=== PATIENT | female | born 1940 | race Caucasian/White ===

== ENCOUNTER 2022-06-07 13:30 | Emergency (ER) | payer MEDICARE, SELFPAY ==
[2022-06-07 13:45] VITALS: PULSE 88; RESP 22; TEMP 37.1; O2SAT 64
[2022-06-07 13:56] VITALS: BP 98/50; PULSE 88; RESP 40; O2SAT 100
[2022-06-07 14:29] VITALS: PULSE 88; RESP 22; TEMP 37.1; O2SAT 64
--- NOTE | 2022-06-07 14:51 | ED.SOB ---
HPI - SOB/Dyspnea General Chief Complaint: Shortness of Breath/Dyspnea Stated Complaint: Poss RSV Time Seen by Provider: 06/07/22 13:40 Source: patient, family, RN notes reviewed and old records reviewed Mode of arrival: ambulatory Limitations: no limitations History of Present Illness HPI Narrative: 82-year-old female accompanied by daughter and other family members presents to express care to be seen today. Daughter reports that she was diagnosed with RSV on the 3rd of the month and her mother has been increasingly more short of breath so she brought her in for evaluation. Patient seen in room 1 with oxygen at 4l per nasal cannula with SAO2 noted to be 64--68% with circumoral pallor, lethargic AND NOT ANSWERING QUESTIONS OR RESPONDING TO STAFF. Patient placed on 100% non rebreather with oxygen saturation improving slowly with patient becoming more alert and responsive.lungs auscultated with crackles noted over 1/2 height of lungs field and peripheral edema noted. Daughter states that patient has been home from the hospital for about 2 weeks after 15 day at [facility]. 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 MD elicited complaint: shortness of breath and cough Pertinent past history: COPD and pneumonia Treatment prior to arrival: oxygen and bronchodilator Related Data Home oxygen amount: 4 liters Home Medications Medication Instructions Recorded Confirmed albuterol sulfate 90 mcg/actuation 1 puff inhalation Q4H PRN 07/23/20 09/11/20 aerosol inhaler alprazolam 1 mg tablet 1 mg PO BID 07/23/20 09/11/20 amlodipine 2.5 mg tablet (Norvasc) 2.5 mg PO DAILY 07/23/20 09/11/20 aspirin 81 mg tablet,delayed 81 mg PO DAILY 07/23/20 09/11/20 release (Adult Low Dose Aspirin) azelastine 137 mcg (0.1 %) nasal 1 spray intranasal Q12H 07/23/20 09/11/20 spray aerosol calcitonin (salmon) 200 1 spray intranasal (ALT) DAILY 07/23/20 09/11/20 unit/actuation nasal spray ezetimibe 10 mg tablet (Zetia) 10 mg PO DAILY 07/23/20 09/11/20 fluticasone propionate 50 2 spray intranasal DAILY 07/23/20 09/11/20 mcg/actuation nasal spray,suspension furosemide 20 mg tablet (Lasix) 20 mg PO BID 07/23/20 09/11/20 hydrocodone 10 mg-acetaminophen 1 tablet PO Q6H PRN 07/23/20 09/11/20 325 mg tablet ([place]) isosorbide mononitrate 60 mg 60 mg PO DAILY 07/23/20 09/11/20 tablet,extended release 24 hr levothyroxine 137 mcg tablet 137 mcg PO DAILY 07/23/20 09/11/20 (Synthroid) magnesium 200 mg tablet 200 mg PO DAILY 07/23/20 09/11/20 meclizine 25 mg tablet 25 mg PO BID 07/23/20 09/11/20 metoprolol tartrate 25 mg tablet 25 mg PO DAILY 07/23/20 09/11/20 nitroglycerin 0.4 mg sublingual 0.4 mg sublingual Q5M PRN 07/23/20 09/11/20 tablet (Nitrostat) omega-3 fatty acids 500 mg capsule 500 mg PO DAILY 07/23/20 09/11/20 pantoprazole 40 mg tablet,delayed 40 mg PO QAM 07/23/20 09/11/20 release (Protonix) potassium chloride 10 mEq 10 meq PO BID 07/23/20 09/11/20 tablet,extended release (Klor-Con) ropinirole 0.25 mg tablet (Requip) 0.25 mg PO BID 07/23/20 09/11/20 ropinirole 1 mg tablet 1 mg PO BID 07/23/20 09/11/20 rosuvastatin 20 mg tablet (Crestor) 20 mg PO DAILY 07/23/20 09/11/20 saxagliptin 2.5 mg tablet (Onglyza) 2.5 mg PO DAILY 07/23/20 09/11/20 trazodone 50 mg tablet 50 mg PO TID 07/23/20 09/11/20 Allergies Allergy/AdvReac Type Severity Reaction Status Date / Time vancomycin Allergy Unknown unknown Verified 06/07/22 14:42 levofloxacin [From Levaquin] Allergy achy bones Verified 06/07/22 14:42 lidocaine Allergy unknown Verified 06/07/22 14:42 salicylic acid Allergy change in Verified 06/07/22 14:42 [From P and S (salicylic mental acid)] status Review of Systems Review of Systems: CONSTITUTIONAL: Positive for malaise, No reported chills, sweats, or fever. EYES: Denies visual change
--- NOTE | 2022-06-07 16:06 | PC.NURSE ---
1500 AUTHORIZATION FOR TRANSFER FAXED TO [facility]. JACKLYN MOSHER RN
== END 2022-06-07 14:23 | disposition short-term general hospital (02) ==
LOC: EXPBETH 13:35
PROVIDERS: Emergency Provider Registered Nurse; PCP Family Medicine
DX: R06.03 Acute respiratory distress (principal); Z87.891 Personal history of nicotine dependence; E11.9 Type 2 diabetes mellitus without complications; E78.5 Hyperlipidemia, unspecified; I10 Essential (primary) hypertension; E03.9 Hypothyroidism, unspecified; J44.9 Chronic obstructive pulmonary disease, unspecified
CPT/HCPCS: 99215; G0463